=== PATIENT | male | born 1980 | race Hispanic/Latino ===

== ENCOUNTER 2017-10-09 14:30 | Emergency (ER) | payer OTHER, SELFPAY ==
[2017-10-09] MEDS ORDERED: ACETAMINOPHEN EXTRA STRENGTH 500 MG TABLET ONE (14:59)
[2017-10-09] MEDS ORDERED: ONDANSETRON ODT 4 MG TAB ONE (14:59)
[2017-10-09 15:32] LABS: BASOPHILS % (AUTO) 0.2 % (0.0-5.0); EOSINOPHILS % (AUTO) 1.1 % (0.0-8.0); HEMATOCRIT 43.5 % (42-54); LYMPHOCYTES % (AUTO) 14.6 % (21.0-51.0); MEAN CORPUSCULAR HEMOGLOBIN 29.2 pg (27.0-33.0); MEAN CORPUSCULAR HGB CONC 34.3 g/dL (32.0-36.0); MEAN CORPUSCULAR VOLUME 85.3 fL (79-99); MONOCYTES % (AUTO) 4.1 % (3.0-13.0); PLATELET COUNT (AUTO) 199 K/uL (130-400); WHITE BLOOD COUNT (AUTO) 8.6 K/uL (4.8-10.8)
[2017-10-09 15:41] LABS: POTASSIUM 3.4 mmol/L (3.5-5.1)
[2017-10-09 15:46] LABS: ALBUMIN 3.8 g/dL (3.5-5.0); BILIRUBIN,TOTAL 1.5 mg/dL (0.2-1.0); TOTAL PROTEIN, SERUM 8.1 g/dL (6.0-8.3)
[2017-10-09] MEDS ORDERED: DIPHENHYDRAMINE HCL 25 MG CAPSULE ONE (15:52)
== END 2017-10-09 17:07 | disposition home or self-care (01) ==
LOC: EDH 14:30
DX: B34.9 Viral infection, unspecified (principal); R51 Headache; R19.7 Diarrhea, unspecified; Z88.6 Allergy status to analgesic agent
CPT/HCPCS: 36415; 80053; 83690; 85025; 87804 ×2; 99284; Q0163

== ENCOUNTER 2017-10-20 22:43 | Emergency (ER) | payer OTHER, SELFPAY ==
[2017-10-20] MEDS ORDERED: IPRATROPIUM/ALBUTEROL SULFATE 3 ML SOLUTION IH ONE (23:35)
[2017-10-21] MEDS ORDERED: LIDOCAINE HCL-MPF 1% 2ML VIAL ONE (00:16)
[2017-10-21] MEDS ORDERED: CEFTRIAXONE SODIUM 1 GM ONE (00:16)
[2017-10-21] MEDS ORDERED: DEXAMETHASONE SOD PHOSPHATE 10MG/ML 1ML VIAL ONE (00:16)
== END 2017-10-21 00:42 | disposition home or self-care (01) ==
LOC: EDH 22:43
DX: J20.9 Acute bronchitis, unspecified (principal); F32.9 Major depressive disorder, single episode, unspecified; Z88.8 Allergy status to other drugs, medicaments and biological substances
CPT/HCPCS: 71045; 94640; 96372 ×2; 99284; J0696; J1100; J3490

== ENCOUNTER 2018-01-05 14:01 | Emergency (ER) | payer OTHER, SELFPAY ==
[2018-01-05] MEDS ORDERED: KETOROLAC TROMETHAMINE 60 MG/2 ML VIAL ONE (14:24)
== END 2018-01-05 14:36 | disposition home or self-care (01) ==
LOC: EDH 14:01
DX: R68.84 Jaw pain (principal); Z88.6 Allergy status to analgesic agent
CPT/HCPCS: 96372; 99283; J1885